=== PATIENT | female | born 1975 | race Caucasian/White ===

== ENCOUNTER → 2018-10-19 | Outpatient (CLI) | payer BC | LOC: MC.RAD 16:00 | DX: Z12.31 Encounter for screening mammogram for malignant neoplasm of breast (principal) ==

== ENCOUNTER → 2019-11-15 | Outpatient (CLI) | payer BC | LOC: MC.RAD 14:56 | DX: Z12.31 Encounter for screening mammogram for malignant neoplasm of breast (principal) ==

== ENCOUNTER → 2021-12-03 | Outpatient (CLI) | payer BC | LOC: MC.RAD 14:42 | DX: Z12.31 Encounter for screening mammogram for malignant neoplasm of breast (principal) ==

== ENCOUNTER → 2024-01-17 | Outpatient (CLI) | payer BC ==
[~2024-01-17] MED LIST: FLONASEALLERGY NS; IRON 27 MG PO; MULTI VITAMINS1 TAB PO; TIROSINT100 MC1 PO
== END ==
LOC: MC.RAD 15:50
DX: Z12.31 Encounter for screening mammogram for malignant neoplasm of breast (principal)